=== PATIENT | female | born 1990 | race Caucasian/White ===

== ENCOUNTER → 2018-01-12 | Outpatient (REF) | payer OTHER, SELFPAY ==
[2018-01-12 12:38] LABS: ALBUMIN 3.8 GM/DL (3.2-5.2); ALKALINE PHOSPHATASE 94 U/L (45-117); ALT/SGPT 26 U/L (12-78); ANION GAP 8 MEQ/L (8-16); AST/SGOT 15 U/L (7-37); BILIRUBIN,TOTAL 0.8 MG/DL (0.2-1.0); BLOOD UREA NITROGEN 11 MG/DL (7-18); CALCIUM LEVEL 8.7 MG/DL (8.5-10.1); CARBON DIOXIDE LEVEL 27 MEQ/L (21-32); CHLORIDE LEVEL 105 MEQ/L (98-107); CREATININE FOR GFR 0.53 MG/DL (0.55-1.30); GLOMERULAR FILTRATION RATE > 60.0 (>60); GLUCOSE, FASTING 73 MG/DL (70-100); POTASSIUM SERUM 4.3 MEQ/L (3.5-5.1); SODIUM LEVEL 140 MEQ/L (136-145); TOTAL PROTEIN 7.6 GM/DL (6.4-8.2)
[2018-01-13 09:52] LABS: HEPATITIS B SURFACE ANTIGEN NEGATIVE (NEGATIVE)
[2018-01-13 09:57] LABS: HEPATITIS B SURFACE ANTIBODY POSITIVE (POSITIVE)
[2018-01-13 10:12] LABS: HIV 1&2 SCREEN CENTAUR NEGATIVE (NEGATIVE)
[2018-01-13 15:02] LABS: HEPATITIS A IgG TOTAL Negative (Negative)
[2018-01-13 15:02] LABS: % CD8 Pos Lymph 26.4 % (12.0-35.5); %CD4 Pos Lymphs 50.7 % (30.8-58.5); ABS Eosinophils 0.2 x10E3/uL (0.0-0.4); ABS Lymphs 1.9 x10E3/uL (0.7-3.1); ABS Monocytes 0.6 x10E3/uL (0.1-0.9); ABS Neutophils 3.7 x10E3/uL (1.4-7.0); Abs CD4 Helper 963 /uL (359-1519); Abs CD8 Suppres 502 /uL (109-897); CD4/CD8 Ratio 1.92 (0.92-3.72); Eosinophils 3 % (Not Estab.); HCT 41.3 % (34.0-46.6); HEPATITIS B CORE ANTIBODY IGG Negative (Negative); HGB 13.6 g/dL (11.1-15.9); Immature Grans 0 % (Not Estab.); Lymphocytes 30 % (Not Estab.); MCH 30.9 pg (26.6-33.0); MCHC 32.9 g/dL (31.5-35.7); MCV 94 fL (79-97); Monocytes 9 % (Not Estab.); Neutrophils 57 % (Not Estab.); Platelets 331 x10E3/uL (150-379); RDW 13.3 % (12.3-15.4); WBC 6.4 x10E3/uL (3.4-10.8)
[2018-01-16 08:34] LABS: HIV-1 RNAby PCR <20 copies/mL
== END ==
LOC: M SFHCPLAZ 08:46
DX: Z21 Asymptomatic human immunodeficiency virus [HIV] infection status (principal)

== ENCOUNTER 2022-09-07 19:20 | Inpatient (IN) | payer MEDICAID, OTHER, SELFPAY ==
[~2022-09-07] VITALS: Ht 165.1 cm; Wt 75.0 kg
[2022-09-07] MEDS ORDERED: MIDAZOLAM INJ 2MG/2ML VIAL IM ONE (19:35)
[2022-09-07] MEDS ORDERED: MIDAZOLAM INJ 2MG/2ML VIAL As Ordered ONE (19:35)
[2022-09-07 20:01] LABS: HEMATOCRIT 39.3 % (36.0-47.0); HEMOGLOBIN 13.2 g/dl (12.0-15.5); MEAN CORPUSCULAR HGB CONC 33.6 g/dl (32.0-36.5); MEAN CORPUSCULAR VOLUME 95.4 fl (80.0-96.0); PLATELET COUNT, AUTOMATED 289 10^3/uL (150-450); RED BLOOD COUNT 4.12 10^6/uL (4.00-5.40); WHITE BLOOD COUNT 12.8 10^3/uL (4.0-10.0)
[2022-09-07 20:31] LABS: ETHYL ALCOHOL (ETHANOL) < 0.003 % (0.000-0.010)
[2022-09-07 20:33] LABS: ACETAMINOPHEN LEVEL < 2.0 UG/ML (10.0-20.0); ALKALINE PHOSPHATASE 62 U/L (46-116); ALT/SGPT 40 U/L (7.0-40); AST/SGOT 35 U/L (<34); BILIRUBIN,DIRECT 0.8 MG/DL (<0.4); BILIRUBIN,TOTAL 1.9 MG/DL (0.3-1.2); BLOOD UREA NITROGEN 11 MG/DL (9-23); CARBON DIOXIDE LEVEL 24 MMOL/L (20-31); CHLORIDE LEVEL 102 MMOL/L (98-107); CREATININE FOR GFR 0.48 MG/DL (0.55-1.30); GLOMERULAR FILTRATION RATE > 60.0 (>60); GLUCOSE, FASTING 76 MG/DL (60-100); POTASSIUM SERUM 3.7 MMOL/L (3.5-5.1); SALICYLATE LEVEL < 3.0 MG/DL (<30); SODIUM LEVEL 136 MMOL/L (136-145)
[2022-09-07 20:37] LABS: THYROID STIMULATING HORMONE 1.468 uIU/ML (0.55-4.78)
[2022-09-07 20:38] LABS: HCG, SERUM QUALITATIVE NEGATIVE (NEGATIVE)
[2022-09-07 20:54] LABS: BARBITURATES URINE NEGATIVE (NEGATIVE); CANNABINOIDS URINE NEGATIVE (NEGATIVE); COCAINE METABOLITE URINE NEGATIVE (NEGATIVE); METHADONE URINE NEGATIVE (NEGATIVE); OPIATES URINE NEGATIVE (NEGATIVE); PHENCYCLIDINE URINE NEGATIVE (NEGATIVE)
[2022-09-07 20:56] LABS: AMPHETAMINES LEVEL URINE POSITIVE (NEGATIVE); BENZODIAZEPINES URINE POSITIVE (NEGATIVE)
[2022-09-07] MEDS ORDERED: LORazepam 1 MG TAB PO ONE (22:30)
[2022-09-08] MEDS ORDERED: LORazepam 1 MG TAB PO PRN (02:45)
[2022-09-08] MEDS ORDERED: MAALOX 30 ML SUSP *UDC PO PRN (02:45)
[2022-09-08] MEDS ORDERED: MOM 30ML SUSPENSION UDC PO PRN (02:45)
[2022-09-08] MEDS: LORazepam 2 MG TAB PO PRN (06:17)
[2022-09-08] MEDS: OLANZapine 5 MG TAB PO SCH ×2 (09:00→20:57)
[2022-09-08] MEDS ORDERED: MED REC COMMENT (09:16)
[2022-09-08] MEDS ORDERED: HOME MED LIST COMPLETE! XX SCH (09:20)
[2022-09-08] MEDS: NICOTINE 21MG/24HR 1 EA TRANSDERMAL TD SCH (16:56)
[2022-09-08 17:24] VITALS: BP 99/49
[2022-09-08] MEDS: traZODone 50 MG TAB PO PRN (20:57)
[2022-09-09 06:29] VITALS: BP 100/53
[2022-09-09 08:05] LABS: CHOLESTEROL RISK RATIO 1.99 (<5); HDL CHOLESTEROL 52.2 MG/DL (>40); LDL CHOLESTEROL 43.2 MG/DL (<100)
[2022-09-09] MEDS: OLANZapine 5 MG TAB PO SCH ×2 (08:19→20:08)
[2022-09-09] MEDS: NICOTINE 21MG/24HR 1 EA TRANSDERMAL TD SCH (08:19)
[2022-09-09] MEDS ORDERED: NICOTINE 21MG/24HR 1 EA TRANSDERMAL TD SCH (09:00)
[2022-09-09] MEDS: LORazepam 2 MG TAB PO PRN (16:58)
[2022-09-09 18:02] VITALS: BP 117/55
[2022-09-09] MEDS: traZODone 50 MG TAB PO PRN (20:08)
[2022-09-10 06:34] VITALS: BP 104/56
[2022-09-10] MEDS: NICOTINE 21MG/24HR 1 EA TRANSDERMAL TD SCH (08:07)
[2022-09-10] MEDS: OLANZapine 5 MG TAB PO SCH ×2 (08:07→20:23)
[2022-09-10] MEDS: LORazepam 2 MG TAB PO PRN ×2 (13:30→20:24)
[2022-09-10 18:36] VITALS: BP 136/59
[2022-09-11 05:51] VITALS: BP 120/60
[2022-09-11] MEDS ORDERED: INFLUENZA QUADRIVALENT PF VACCINE 0.5ML SYRINGE IM.IMMUN ONE (09:00)
[2022-09-11] MEDS: NICOTINE 21MG/24HR 1 EA TRANSDERMAL TD SCH (10:49)
[2022-09-11] MEDS: OLANZapine 5 MG TAB PO SCH ×2 (10:49→23:37)
[2022-09-11] MEDS: LORazepam 2 MG TAB PO PRN (16:55)
[2022-09-11 18:30] VITALS: BP 123/67
[2022-09-12 06:58] VITALS: BP 102/59
[2022-09-12] MEDS: OLANZapine 5 MG TAB PO SCH ×2 (12:15→21:29)
[2022-09-12] MEDS: NICOTINE 21MG/24HR 1 EA TRANSDERMAL TD SCH (12:16)
[2022-09-12 18:20] VITALS: BP 144/80
[2022-09-12] MEDS: LORazepam 2 MG TAB PO PRN (19:25)
[2022-09-12] MEDS: traZODone 50 MG TAB PO PRN (21:29)
[2022-09-13 06:28] VITALS: BP 108/51
[2022-09-13] MEDS: NICOTINE 21MG/24HR 1 EA TRANSDERMAL TD SCH (09:48)
[2022-09-13] MEDS: OLANZapine 5 MG TAB PO SCH (09:48)
[2022-09-13] MEDS ORDERED: OLANZapine 5 MG TAB PO SCH (10:25)
[2022-09-13] MEDS: LORazepam 2 MG TAB PO PRN (15:10)
[2022-09-13 16:43] VITALS: BP 121/57
[2022-09-13] MEDS: traZODone 50 MG TAB PO PRN (20:00)
[2022-09-13] MEDS ORDERED: OLANZapine 10 MG TAB PO ONE (21:00)
[2022-09-14 06:54] VITALS: BP 94/46
[2022-09-14] MEDS: NICOTINE 21MG/24HR 1 EA TRANSDERMAL TD SCH (10:38)
[2022-09-14] MEDS: ACETAMINOPHEN TAB 650MG DOSE (2X325MG) PO PRN ×2 (13:01→17:28)
[2022-09-14 16:18] VITALS: BP 107/56
[2022-09-14] MEDS: LORazepam 2 MG TAB PO PRN (20:09)
[2022-09-14] MEDS: traZODone 50 MG TAB PO PRN (20:10)
[2022-09-14] MEDS ORDERED: OLANZapine 5 MG TAB PO SCH (21:00)
[2022-09-15 06:44] VITALS: BP 110/53
[2022-09-15] MEDS: NICOTINE 21MG/24HR 1 EA TRANSDERMAL TD SCH (09:00)
[2022-09-15] MEDS ORDERED: TRAZ-252 PO (09:17)
[2022-09-15] MEDS ORDERED: OLAN1TAB16 PO (09:17)
== END 2022-09-15 13:15 | disposition home or self-care (01) | DRG 750 ==
LOC: M ED 19:20 → M ED INP 09-08 02:41 → M PSY 09-08 04:14
PROVIDERS: ADMIT Psychiatry & Neurology Psychiatry; ATTEND Psychiatry & Neurology Psychiatry
DX: F25.9 Schizoaffective disorder, unspecified (principal); Z81.1 Family history of alcohol abuse and dependence; F17.200 Nicotine dependence, unspecified, uncomplicated; Z91.14 Patient's other noncompliance with medication regimen; R17 Unspecified jaundice; F15.10 Other stimulant abuse, uncomplicated

== ENCOUNTER 2022-12-04 19:33 | Emergency (ER) | payer MEDICAID ==
[~2022-12-04] VITALS: Ht 165.1 cm; Wt 104.5 kg
[~2022-12-04 19:33] MED LIST: MED REC COMMENT; OLAN1TAB16 PO; TRAZ-252 PO
[2022-12-04] MEDS ORDERED: OLAN1TAB16 PO (20:14)
[2022-12-04] MEDS ORDERED: med rec comment (20:14)
[2022-12-04] MEDS ORDERED: TRAZ-252 PO (20:14)
[2022-12-04] MEDS ORDERED: HOME MED LIST COMPLETE! XX SCH (20:20)
[2022-12-04] MEDS ORDERED: MIDAZOLAM INJ 2MG/2ML VIAL IM ONE (20:25)
[2022-12-04] MEDS ORDERED: diphenhydrAMINE 50MG/ML VIAL IM ONE (20:25)
[2022-12-04] MEDS ORDERED: HALOPERIDOL 5MG/ML 1ML VIAL IM ONE (20:25)
[2022-12-04 20:29] LABS: HEMATOCRIT 39.1 % (36.0-47.0); MEAN CORPUSCULAR HEMOGLOBIN 31.3 pg (27.0-33.0); MEAN CORPUSCULAR HGB CONC 33.2 g/dl (32.0-36.5); MEAN CORPUSCULAR VOLUME 94.2 fl (80.0-96.0); PLATELET COUNT, AUTOMATED 395 10^3/uL (150-450); RED BLOOD COUNT 4.15 10^6/uL (4.00-5.40)
[2022-12-04 20:38] LABS: BARBITURATES URINE NEGATIVE (NEGATIVE); BENZODIAZEPINES URINE NEGATIVE (NEGATIVE); COCAINE METABOLITE URINE NEGATIVE (NEGATIVE)
[2022-12-04 20:39] LABS: METHADONE URINE NEGATIVE (NEGATIVE); OPIATES URINE NEGATIVE (NEGATIVE); PHENCYCLIDINE URINE NEGATIVE (NEGATIVE)
[2022-12-04 20:41] LABS: AMPHETAMINES LEVEL URINE POSITIVE (NEGATIVE); CANNABINOIDS URINE POSITIVE (NEGATIVE)
[2022-12-04 20:53] LABS: ETHYL ALCOHOL (ETHANOL) < 0.003 % (0.000-0.010); HCG, SERUM QUALITATIVE NEGATIVE (NEGATIVE)
[2022-12-04 20:54] LABS: SALICYLATE LEVEL 6.8 MG/DL (<30)
[2022-12-04 20:55] LABS: ACETAMINOPHEN LEVEL < 2.0 UG/ML (10.0-20.0); ALBUMIN 3.8 G/DL (3.2-5.2); ALKALINE PHOSPHATASE 79 U/L (46-116); ALT/SGPT 63 U/L (7.0-40); AST/SGOT 74 U/L (<34); BILIRUBIN,DIRECT 0.3 MG/DL (<0.4); BILIRUBIN,TOTAL 0.8 MG/DL (0.3-1.2); BLOOD UREA NITROGEN 8 MG/DL (9-23); CARBON DIOXIDE LEVEL 26 MMOL/L (20-31); CHLORIDE LEVEL 106 MMOL/L (98-107); CREATININE FOR GFR 0.52 MG/DL (0.55-1.30); GLOMERULAR FILTRATION RATE > 60.0 (>60); GLUCOSE, FASTING 75 MG/DL (60-100); POTASSIUM SERUM 3.7 MMOL/L (3.5-5.1); SODIUM LEVEL 141 MMOL/L (136-145); TOTAL PROTEIN 6.7 G/DL (5.7-8.2)
[2022-12-04 20:57] LABS: THYROID STIMULATING HORMONE 0.764 uIU/ML (0.55-4.78)
[2022-12-05 13:56] VITALS: BP 117/62
[2022-12-08 02:07] LABS: HIV-1 RNA PCR QUANT 2 LC550285 <20 copies/mL (.)
== END 2022-12-05 13:55 | disposition home or self-care (01) ==
LOC: M ED 19:33
DX: F15.10 Other stimulant abuse, uncomplicated (principal); Z21 Asymptomatic human immunodeficiency virus [HIV] infection status; F19.10 Other psychoactive substance abuse, uncomplicated
CPT/HCPCS: 80048; 80076; 80143; 80307; 82077; 84443; 84703; 85027; 87536; 87635; 96372; 99285; J1200; J1630; J2250

== ENCOUNTER → 2022-12-14 | Outpatient (REF) | payer MEDICAID ==
[~2022-12-14] MED LIST changes: +med rec comment
== END ==
LOC: M LAB REF 10:44
PROVIDERS: ATTEND Surgery
DX: L03.115 Cellulitis of right lower limb (principal)